=== PATIENT | male | born 1955 | race Caucasian/White ===

== ENCOUNTER 2019-03-16 11:25 | Outpatient (CLI) | payer OTHER ==
[2019-03-16 18:59] LABS: BASOPHILS % (AUTO) 1.1 %; EOSINOPHILS # (AUTO) 0.1 10^3/uL (0.0-0.7); EOSINOPHILS % (AUTO) 3.1 %; HGB - HEMOGLOBIN 15.5 g/dL (14.0-18.0); LYMPHOCYTES # (AUTO) 1.6 10^3/uL (1.5-3.5); LYMPHOCYTES % (AUTO) 34.6 %; MEAN CORPUSCULAR HEMOGLOBIN 32.6 pg (27.0-31.0); MEAN CORPUSCULAR HGB CONC 33.4 g/dL (32.0-36.0); MEAN CORPUSCULAR VOLUME 97.6 fL (80.0-94.0); MEAN PLATELET VOLUME 8.4 fL (7.4-11.4); MONOCYTES # (AUTO) 0.4 10^3/uL (0.0-1.0); MONOCYTES % (AUTO) 8.4 %; NEUTROPHILS # (AUTO) 2.4 10^3/uL (1.5-6.6); NEUTROPHILS % (AUTO) 52.8 %; PLT - PLATELET COUNT 194 10^3/uL (130-450); RED BLOOD COUNT 4.74 10^6/uL (4.70-6.10); RED CELL DISTRIBUTION WIDTH 12.8 % (12.0-15.0); WHITE BLOOD COUNT 4.5 x10^3/uL (4.8-10.8)
[2019-03-16 19:09] LABS: ALBUMIN 4.4 g/dL (3.2-5.5); ALBUMIN/GLOBULIN RATIO 1.6 (1.0-2.2); ALKALINE PHOSPHATASE 66 IU/L (42-121); ALT ALANINE AMINOTRANSFERASE 27 IU/L (10-60); AST ASPARTATE AMINOTRANSFERASE 28 IU/L (10-42); BILIRUBIN,TOTAL 0.9 mg/dL (0.2-1.0); BUN - BLOOD UREA NITROGEN 24 mg/dL (6-20); CARBON DIOXIDE - CO2 27 mmol/L (21-32); CHLORIDE 104 mmol/L (101-111); CHOL/HDL RATIO 3.9 (<5.0); CHOLESTEROL 235 mg/dL; CREATININE 0.9 mg/dL (0.6-1.2); GFR - MDRD 85 (>89); GLUCOSE 112 mg/dL (70-100); HDL CHOLESTEROL 60 mg/dL; LDL CHOLESTEROL,CALCULATED 160 mg/dL; LDL/HDL RATIO 2.7 (<3.6); SODIUM 138 mmol/L (135-145); TOTAL PROTEIN 7.1 g/dL (6.7-8.2); VLDL CHOLESTEROL 15 mg/dL
== END 2019-03-16 11:26 | disposition home or self-care (01) ==
LOC: LAB.WCP 11:25
PROVIDERS: ATTEND Family Medicine
DX: Z00.00 Encounter for general adult medical examination without abnormal findings (principal)
CPT/HCPCS: 36415; 80053; 80061; 83721; 84443; 85025

== ENCOUNTER 2020-09-28 08:19 | Outpatient (CLI) | payer MEDICARE, OTHER ==
[2020-09-28] MEDS ORDERED: IOVERSOL 320 100 ML VIAL IVP ONE ×2 (08:32→14:30)
[2020-09-28] MEDS ORDERED: IOVERSOL 320 50 ML VIAL ONE (08:32)
[2020-09-28 09:20] LABS: CREATININE 1.1 mg/dL (0.6-1.2)
[2020-09-28] MEDS ORDERED: IOVERSOL 320 50 ML VIAL PO ONE (14:30)
--- NOTE | 2020-09-28 15:18 | CT Report ---
PROCEDURE: Abdomen/Pelvis W INDICATIONS: SUPRAPUBIC PAIN CONTRAST: IV CONTRAST: Optiray 320 ml: 100 PO CONTRAST: Optiray 320 ml50 TECHNIQUE: After the administration of intravenous and oral contrast, 5 mm thick sections acquired from the diap hragms to the symphysis. 5 mm thick coronal and sagittal reformats were acquired. For radiation dos e reduction, the following was used: automated exposure control, adjustment of mA and/or kV accordin g to patient size. COMPARISON: None. FINDINGS: Image quality: Excellent. ABDOMEN: Lung bases: There is mild scarring or atelectasis in the lung bases. Heart size is normal. Solid organs: Evaluation of the liver demonstrates no focal hepatic lesions. Gallbladder appears wit hin normal limits without calcified gallstones. Biliary system is non dilated. The spleen is normal in size. Pancreas enhances normally without peripancreatic fat stranding or fluid collections. No ad renal nodules. Kidneys demonstrate no hydronephrosis. There are small right renal cysts. Peritoneum and bowel: Small bowel loops demonstrate normal wall thickness and caliber. The appendix is normal in appearance. There is a short nondistended segment in the sigmoid colon with mild associa anabel bowel wall thickening. No free fluid or air. Nodes and vessels: No retroperitoneal or mesenteric adenopathy by size criteria. Aorta and inferior vena cava are normal in size. Miscellaneous: No ventral hernias. PELVIS: Genitourinary: There is mild bladder wall thickening with minimal pericystic fat stranding. Miscellaneous: No inguinal hernias or adenopathy. Bones: No suspicious bony lesions. No vertebral body compression fractures. IMPRESSION: 1. Mild bladder wall thickening with minimal pericystic fat stranding suggestive of a cystitis. Recom mend correlation with urinalysis. 2. Short nondistended segment in the sigmoid colon with mild wall thickening. Although the findings m ay reflect peristaltic activity, an intramural mass cannot be excluded. Consider further evaluation w ith colonoscopy. Reviewed by: Rainer Dunaway MD on 09/28/2020 3:17 PM PST Approved by: Rainer Dunaway MD on 09/28/2020 3:17 PM PST Station ID: [id number]
== END 2020-09-28 08:20 | disposition home or self-care (01) ==
LOC: DI 08:19
PROVIDERS: ATTEND Surgery
DX: R10.30 Lower abdominal pain, unspecified (principal)
CPT/HCPCS: 36415; 74177; 82565; Q9967

== ENCOUNTER 2020-10-24 13:05 | Outpatient (CLI) | payer MEDICARE, OTHER | END 2020-10-24 13:06 | disposition home or self-care (01) | LOC: LAB 13:05 | PROVIDERS: ATTEND Surgery | DX: R10.30 Lower abdominal pain, unspecified (principal) | CPT/HCPCS: 87086 ==

== ENCOUNTER 2020-12-01 12:20 | Day surgery (SDC) | payer MEDICARE, OTHER ==
[2020-12-01] MEDS ORDERED: LACTATED RINGERS 1,000 ML IV ONE ×2 (12:35→16:39)
--- NOTE | 2020-12-01 15:34 | HISTORY & PHYSICAL EXAMINATION ---
Chief Complaint - Chief Complaint Chief Complaint: history of lower abdominal pain for months Abdominal Pain HPI - Admitted From Admitted from: Direct admit - History Obtained From History obtained from: Family Exam limitations: No limitations - History of Present Illness Severity at the worst: Moderate Duration: Other (months. recently resolved) HPI Comment/Other: lower abdominal pain for months. ct scan possible thickened sigmoid colon/ mass. PMH/PSH - Past Medical History Cardiovascular: positive: High cholesterol Respiratory: positive: None Endocrine/Autoimmune: positive: None GI: positive: None : positive: None HEENT: positive: None Psych: positive: None Musculoskeletal: positive: None Derm: positive: None MRSA Hx?: Yes - Past Surgical History Ortho: positive: Other Social & Family Hx - Social History Substance Use and Type: Other Meds/Allgy - Home Medications Home Medications: Ambulatory Orders Medication Instructions Recorded Confirmed Aspirin [Aspirin EC] 81 mg PO DAILY 12/01/20 12/01/20 Multivitamin 1 tab PO DAILY 12/01/20 12/01/20 - Allergies Allergies/Adverse Reactions: Allergies Allergy/AdvReac Type Severity Reaction Status Date / Time No Known Drug Allergies Allergy Verified 12/01/20 12:48 Review of Systems - Constitutional Constitutional: reports: Fatigue (10 pt ros as above otherwise unremarkable) Exam - Vital Signs Reviewed Vital Signs: Yes Vital Signs: Vital Signs x48h Temp Pulse Resp BP Pulse Ox 12/01/20 12:35 36.3 C L 73 12 153/97 H 98 - Physical Exam General Appearance: positive: No acute distress, Alert Eyes Bilateral: positive: Normal inspection, PERRL ENT: positive: No signs of dehydration Neck: positive: No JVD Respiratory: positive: No respiratory distress Cardiovascular: positive: Regular rate & rhythm Abdomen: positive: Non-tender, No distention, Other (denies hernia bulge) Impression/Plan - Problem List Problem List: He had abdominal pain for months. Possible mass of his sigmoid colon by ct scan plan colonoscopy parq held and consent obtained
[2020-12-01] MEDS ORDERED: MIDAZOLAM 2 MG/2 ML VIAL ONE ×2 (15:44)
[2020-12-01] MEDS ORDERED: fentaNYL 250 MCG/5 ML VIAL ONE (15:44)
--- NOTE | 2020-12-01 16:39 | OPERATIVE REPORT ---
Operative Report - General Procedure Date: 12/01/20 Planned Procedure: colonoscopy Pre-Op Diagnosis: hx abdominal pain and ct possible sigmoid colon thickening Procedure Performed: colonoscopy Post Op Diagnosis: essentially normal colon. 2 small hyperplastic polyps rectum - Procedure Note Anesthesia Technique: Moderate sedation Pathology: rectum biopsies Complications: none
[2020-12-01 16:44] VITALS: BP 123/69
--- NOTE | 2020-12-01 17:56 | PROCEDURE REPORT ---
DATE OF SERVICE: 12/01/2020 Physician: Mario Rome MD PREOPERATIVE DIAGNOSIS: History of lower abdominal pain and CT scan revealing possible thickening sigmoid colon. POSTOPERATIVE DIAGNOSES: 1. History of lower abdominal pain and CT scan revealing possible thickening sigmoid colon. 2. Normal colonoscopy with the exception of the appearance of two very small hyperplastic polyps of the rectum. PROCEDURE PERFORMED: Colonoscopy with cold forceps biopsy x2. SURGEON: Mario Rome MD FENCE MACHINE OPERATOR: None. Anesthesia: Nurse sedation COMPLICATIONS: None. ESTIMATED BLOOD LOSS: None. FINDINGS: Essentially normal colon. There was no diverticulosis or inflammation. There was no evidence of thickening of the sigmoid colon. He had a small fibroepithelial polyp of the anal canal area, which was benign. He had two, what appeared to be benign hyperplastic polyps, diminutive of the rectum. These were biopsied and removed with cold forceps. INDICATIONS FOR PROCEDURE: The patient is a healthy 65-year-old gentleman with lower abdominal discomfort for many months. It has improved. However, he did have a CT scan while he was still having abdominal discomfort showing a possible thickened sigmoid colon. Last colonoscopy was over 6 years ago. He presents for colonoscopy. The risks discussed, alternatives discussed, all questions answered and consent obtained. DESCRIPTION OF PROCEDURE: The patient was properly identified and brought to the GI suite. Monitored anesthesia care and sedation by nurse was given. Digital rectal examination was essentially normal with the above small benign finding. Colonoscope was easily placed to the cecum, which was confirmed by the orifice of the appendix and the ileocecal valve. The colonoscope was slowly withdrawn. He had no diverticulosis. He had no inflammation. Sigmoid colon appeared completely normal. He had the appearance of two very small diminutive hyperplastic polyps of the rectum, which was identified on retroflex view as well as forward view. These were biopsied with cold forceps and sent for pathology. He tolerated the procedure well, was awakened and brought to recovery in good condition. Note is dictated as [employer] reporting system is down. TD: 12/01/2020 16:45 CHIQUITA
== END 2020-12-01 12:21 | disposition home or self-care (01) ==
LOC: SDS 12:20
PROVIDERS: ATTEND Surgery
PROC: 0DBP8ZZ Excision of Rectum, Via Natural or Artificial Opening Endoscopic (ICD-10-PCS; principal; 2020-12-01 13:30)
DX: R10.30 Lower abdominal pain, unspecified (principal); K62.1 Rectal polyp; Z79.82 Long term (current) use of aspirin
CPT/HCPCS: 45380; J3010; J7120

== ENCOUNTER 2023-09-29 12:24 | Outpatient (CLI) | payer MEDICARE, OTHER ==
[2023-09-29 18:00] LABS: BASOPHILS # (AUTO) 0.1 10^3/uL (0.0-0.1); BASOPHILS % (AUTO) 0.8 %; EOSINOPHILS # (AUTO) 0.3 10^3/uL (0.0-0.7); HCT - HEMATOCRIT 47.1 % (42.0-52.0); HGB - HEMOGLOBIN 15.5 g/dL (14.0-18.0); LYMPHOCYTES # (AUTO) 1.7 10^3/uL (1.5-3.5); LYMPHOCYTES % (AUTO) 27.5 %; MEAN CORPUSCULAR HEMOGLOBIN 32.8 pg (27.0-31.0); MEAN CORPUSCULAR HGB CONC 32.9 g/dL (32.0-36.0); MEAN CORPUSCULAR VOLUME 99.6 fL (80.0-94.0); MONOCYTES # (AUTO) 0.5 10^3/uL (0.0-1.0); MONOCYTES % (AUTO) 8.5 %; NEUTROPHILS # (AUTO) 3.7 10^3/uL (1.5-6.6); NEUTROPHILS % (AUTO) 58.9 %; PLT - PLATELET COUNT 205 10^3/uL (130-450); RED BLOOD COUNT 4.73 10^6/uL (4.70-6.10); WHITE BLOOD COUNT 6.2 x10^3/uL (4.8-10.8)
[2023-09-29 18:28] LABS: ALBUMIN 4.4 g/dL (3.2-5.5); ALBUMIN/GLOBULIN RATIO 1.7 (1.0-2.2); ALKALINE PHOSPHATASE 59 IU/L (42-121); ALT ALANINE AMINOTRANSFERASE 20 IU/L (10-60); AST ASPARTATE AMINOTRANSFERASE 22 IU/L (10-42); BILIRUBIN,TOTAL 1.3 mg/dL (0.2-1.0); BUN - BLOOD UREA NITROGEN 17 mg/dL (6-20); CALCIUM 9.4 mg/dL (8.5-10.3); CARBON DIOXIDE - CO2 31 mmol/L (21-32); CHLORIDE 104 mmol/L (101-111); CHOL/HDL RATIO 3.7 (<5.0); CHOLESTEROL 234 mg/dL; CREATININE 0.9 mg/dL (0.6-1.3); GFR - MDRD 84 (>89); GLUCOSE 104 mg/dL (74-104); HDL CHOLESTEROL 63 mg/dL; LDL CHOLESTEROL,CALCULATED 151 mg/dL; LDL/HDL RATIO 2.4 (<3.6); POTASSIUM 4.4 mmol/L (3.5-4.5); SODIUM 139 mmol/L (135-145); TRIGLYCERIDES 102 mg/dL (48-352); VLDL CHOLESTEROL 20 mg/dL
[2023-09-29 18:40] LABS: THYROID STIMULATING HORMONE 1.41 uIU/mL (0.34-5.60)
[2023-09-29 21:02] LABS: ESTIMATED AVERAGE GLUCOSE 97 mg/dL (70-100)
== END 2023-09-29 12:25 | disposition home or self-care (01) ==
LOC: LAB.N 12:24
PROVIDERS: ATTEND Nurse Practitioner Family
DX: E78.5 Hyperlipidemia, unspecified (principal); R03.0 Elevated blood-pressure reading, without diagnosis of hypertension; Z13.1 Encounter for screening for diabetes mellitus; Z12.5 Encounter for screening for malignant neoplasm of prostate; Z86.39 Personal history of other endocrine, nutritional and metabolic disease
CPT/HCPCS: 36415; 80053; 80061; 83036; 84443; 85025; G0103; 83721; 84153